=== PATIENT | female | born 1975 | race Caucasian/White ===

== ENCOUNTER 2019-03-09 08:59 | Day surgery (SDC) | payer SELFPAY ==
[2019-03-05 15:26] VITALS: BMI 21.9
[2019-03-09] MEDS ORDERED: LIDOCAINE 1%/EPI 1:100000 (20 ML MULTI DOSE VIAL) ONE (10:25)
[2019-03-09] MEDS ORDERED: GENTAMICIN SO4 80 MG/2 ML VIAL ONE ×2 (10:27→13:44)
[2019-03-09] MEDS ORDERED: ceFAZolin SODIUM 1 GM VIAL ONE ×4 (10:27→13:44)
[2019-03-09] MEDS ORDERED: BUPIVACAINE HCL/PF 2.5 MG/ML - 30 ML VIAL IJ ONE (10:34)
[2019-03-09] MEDS ORDERED: MIDAZOLAM HCL 2 MG/2 ML SINGLE DOSE VIAL ONE (11:43)
[2019-03-09] MEDS ORDERED: ROCURONIUM BROMIDE 50 MG/5 ML SYRINGE ONE (11:48)
[2019-03-09] MEDS ORDERED: PROPOFOL 20 ML ONE (11:48)
[2019-03-09] MEDS ORDERED: LIDOCAINE HCL/PF 2% SDV 5ML VIAL ONE (11:49)
[2019-03-09] MEDS ORDERED: fentaNYL CITRATE 250 MCG/5 ML VIAL ONE (11:49)
[2019-03-09] MEDS ORDERED: KETOROLAC TROMETHAMINE 30 MG/1 ML VIAL ONE (11:49)
[2019-03-09] MEDS ORDERED: ONDANSETRON 4 MG/2 ML VIAL ONE ×2 (11:49→16:57)
[2019-03-09] MEDS ORDERED: GUM MASTIC/STORAX/MSAL/ALCOHOL 1 DRP DROPSBTL MC ONE (15:37)
[2019-03-09] MEDS ORDERED: PROMETHAZINE HCL 25 MG/1 ML VIAL IVPUSH PRN (16:29)
[2019-03-09] MEDS ORDERED: oxyCODONE HCL 5 MG TABLET PO PRN (16:29)
[2019-03-09] MEDS ORDERED: ONDANSETRON 4 MG/2 ML VIAL IVPUSH PRN (16:29)
[2019-03-09] MEDS ORDERED: PROMETHAZINE HCL 25 MG/1 ML VIAL ONE (17:04)
[2019-03-09 18:06] VITALS: TEMP 97.9
[2019-03-09] MEDS ORDERED: oxyCODONE HCL 5 MG TABLET ONE (18:38)
[2019-03-09 19:38] VITALS: BP 110/62; PULSE 60
--- NOTE | 2019-03-13 14:06 | PATH ---
Surgical Pathology Report Patient Name: BRITTANY PALMER [facility]. Rec. #: [id number] /Age/Gender: 1975 (Age: 43) / F Account: [id number] Location: [facility] Taken: 03/09/2019 Received: 03/09/2019 Reported: 03/13/2019 Physicians: Salima Ashton M.D. Specimen(s) Received A: RIGHT BREAST SKIN B: LEFT BREAST SKIN Clinical History Desired cosmesis Final Diagnosis A. RIGHT BREAST SKIN, EXCISION: PORTIONS OF SKIN WITH NO DISCRETE LESIONS. GROSS EXAMINATION ONLY. B. LEFT BREAST SKIN, EXCISION: PORTIONS OF SKIN WITH NO DISCRETE LESIONS. GROSS EXAMINATION ONLY. Electronically Signed Chandan Melgar M.D. Gross Description A. Received in formalin labeled "right breast skin," are 2 interiano, irregular, unoriented skin shaves measuring 10.0 x 1.2 cm and 4.3 x 2.1 cm. No discrete epidermal lesions are identified. No sections are submitted, gross only. B. Received in formalin labeled "left breast skin," are 2 interiano, irregular, unoriented skin shaves measuring 4.6 x 2.2 cm and 5.5 x 3.8 cm. No discrete epidermal lesions are identified. No sections are submitted, gross only. 03/12/201903/12/2019
== END 2019-03-09 19:38 | disposition home or self-care (01) ==
LOC: FASU 08:59
PROVIDERS: ATTEND Surgery
PROC: 0H0V07Z Alteration of Bilateral Breast with Autologous Tissue Substitute, Open Approach (ICD-10-PCS; principal; 2019-03-09 10:00)
DX: Z41.1 Encounter for cosmetic surgery (principal)
CPT/HCPCS: 84703; 88300-TC; 94760